=== PATIENT | female | born 1990 | race Caucasian/White ===

== ENCOUNTER 2017-01-29 17:31 | Emergency (ER) ==
[2017-01-29 17:39] VITALS: BP 126/82; TEMP 100.4; BMI 22.3
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
[2017-01-29 18:22] LABS: BILIRUBIN,URINE Negative (NEGATIVE); KETONES,URINE Trace (NEGATIVE); LEUKOCYTE ESTERASE ,URINE Negative (NEGATIVE); NITRITE,URINE Negative (NEGATIVE); PROTEIN,URINE Negative (NEGATIVE); URINE, BLOOD Negative (NEGATIVE)
[2017-01-29 18:23] LABS: ADD URINE MICROSCOPIC NO
[2017-01-29 18:24] LABS: URINE PREGNANCY INTERNAL QC INTERNAL QC VALID
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
== END 2017-01-29 18:55 | disposition home or self-care (01) ==
LOC: ED 17:31
DX: M54.5 Low back pain (principal); W50.0XXA Accidental hit or strike by another person, initial encounter
CPT/HCPCS: 81001; 81025; 99283